=== PATIENT | female | born 1985 | race Caucasian/White ===

== ENCOUNTER 2021-08-07 11:52 | Emergency (ER) | payer BC ==
[~2021-08-07] VITALS: Ht 152.4 cm; Wt 58.2 kg
[2021-08-07 12:23] LABS: BASO # 0.03 K/mm3 (0.02-0.10); EOS # 0.03 K/mm3 (0.04-0.40); EOS % 0.6 % (1.0-5.0); HEMATOCRIT 46.6 % (37.0-47.0); HEMOGLOBIN 14.7 g/dL (12.5-16.0); LYMPH# 1.03 K/mm3 (1.50-4.00); MEAN CELL VOLUME 77 fl (78-100); MEAN CORPUSCULAR HEMOGLOBIN 24 pg (27-31); MEAN CORPUSCULAR HGB CONC 32 g/dL (33-37); MEAN PLATELET VOLUME 11.1 fl (7.4-10.4); MONO # 0.32 K/mm3 (0.20-0.80); NEU # 3.69 K/mm3 (1.40-6.50); PLATELET COUNT 200 K/mm3 (130-400); RED BLOOD COUNT 6.04 M/mm3 (4.10-5.30); RED CELL DISTRIBUTION WIDTH 17.4 % (11.5-14.5); WHITE BLOOD COUNT 5.1 K/mm3 (4.8-10.8)
[2021-08-07 12:59] LABS: URINE APPEARANCE HAZY; URINE COLOR YELLOW
[2021-08-07 13:00] LABS: ALBUMIN 4.4 g/dL (3.5-5.0)
[2021-08-07 13:00] LABS: URINE BILIRUBIN NEGATIVE (NEGATIVE); URINE BLOOD 250 ery/uL (NEGATIVE); URINE GLUCOSE NEGATIVE (NEGATIVE); URINE KETONE 3+ (NEGATIVE); URINE LEUKOCYTE ESTERASE TRACE (NEGATIVE); URINE MUCUS PRESENT (NOT PRESENT); URINE NITRATE NEGATIVE (NEGATIVE); URINE PROTEIN(semi-quant) 2+ (NEGATIVE); URINE UROBILINOGEN NORMAL (NORMAL)
[2021-08-07 13:01] LABS: POTASSIUM 3.5 mmol/L (3.5-5.1)
[2021-08-07 13:02] LABS: CALCIUM 9.3 mg/dL (8.3-10.5)
[2021-08-07 13:03] LABS: TOTAL PROTEIN 7.8 g/dL (6.4-8.3)
[2021-08-07 13:05] LABS: TOTAL BILIRUBIN 0.6 mg/dL (0.2-1.2)
[2021-08-07 16:39] LABS: POTASSIUM 3.7 mmol/L (3.5-5.1)
[2021-08-07 21:00] LABS: URINE APPEARANCE CLEAR; URINE COLOR YELOLOW
[2021-08-07 21:01] LABS: URINE BILIRUBIN NEGATIVE (NEGATIVE); URINE BLOOD NEGATIVE (NEGATIVE); URINE KETONE 2+ (NEGATIVE); URINE LEUKOCYTE ESTERASE NEGATIVE (NEGATIVE); URINE NITRATE NEGATIVE (NEGATIVE); URINE PROTEIN(semi-quant) TRACE (NEGATIVE); URINE UROBILINOGEN NORMAL (NORMAL); URINE WBC 0-1 /hpf (0-3)
[2021-08-07] MEDS ORDERED: PHENERGAN 25 TA25 MG PO (22:58)
[2021-08-07 23:28] VITALS: BP 112/78
== END 2021-08-07 23:28 | disposition home or self-care (01) ==
LOC: ED 11:52
PROVIDERS: Family Medicine; Nurse Practitioner
DX: O21.0 Mild hyperemesis gravidarum (principal); Z3A.09 9 weeks gestation of pregnancy
CPT/HCPCS: J2550; J7030; J7042

== ENCOUNTER 2022-01-21 17:11 | Outpatient (RCR) | payer BC ==
[2022-01-19 17:12] VITALS: BP 107/62
[2022-01-19 19:00] VITALS: BP 100/58
[~2022-01-21] VITALS: Ht 152.4 cm; Wt 69.2 kg
[~2022-01-21 17:11] MED LIST: PHENERGAN 25 TA25 MG PO
[2022-01-21] MEDS ORDERED: PRENATA1 CTB PO (17:33)
[2022-01-21] MEDS ORDERED: IRON 100 PLUS 21 TAB PO (17:33)
[2022-01-21] MEDS ORDERED: PHENERGAN 25 TA25 MG (17:33)
[2022-01-21 17:37] VITALS: BP 96/62
== END 2022-01-22 | disposition home or self-care (01) ==
LOC: AMSURD
DX: O99.02 Anemia complicating childbirth (principal); D50.9 Iron deficiency anemia, unspecified; Z79.899 Other long term (current) drug therapy; Z3A.00 Weeks of gestation of pregnancy not specified
CPT/HCPCS: J1756; J7050

== ENCOUNTER 2022-01-23 14:02 | Outpatient (RCR) | payer BC ==
[~2022-01-23] VITALS: Ht 152.4 cm; Wt 69.2 kg
[~2022-01-23 14:02] MED LIST changes: +IRON 100 PLUS 21 TAB PO; +PHENERGAN 25 TA25 MG; +PRENATA1 CTB PO
[2022-01-23 14:10] VITALS: BP 100/50
[2022-01-23 15:45] VITALS: BP 105/61
== END 2022-02-22 | disposition home or self-care (01) ==
LOC: AMSURD
DX: Z79.899 Other long term (current) drug therapy (principal)
CPT/HCPCS: J1756; J7050